=== PATIENT | male | born 1960 | race Caucasian/White ===

== ENCOUNTER → 2019-04-23 12:41 | Outpatient (CLI) | payer OTHER, SELFPAY ==
--- NOTE | ~2019-04-23 | US_ITS ---
EXAMINATION: US carotid duplex BI DATE: 04/23/2019 13:00 INDICATION: Left visual disturbance TECHNIQUE: Grayscale, color Doppler, and pulsed Doppler images of the cervical carotid arteries were obtained. The degree of vessel stenosis is placed in one of the following categories: normal, <50%, 5 0-69%, >=70% but less than near-occlusion, near-occlusion, or total occlusion. Note that percent sten osis relative to normal distal artery lumen diameter is indirectly measured from velocity measurement s as described by Barrington, et al. Radiology 2003; 229:[id number]. Notes: Normal: Peak systolic velocity <125 centimeters/sec and no plaque <50%. Peak systolic velocity <125 ( EDV <40; ICA/CCA PSV ratio <2.0; used these factors only a tandem lesions or low cardiac output or co ntralateral disease) 50-69 %: PSV 125-230 (EDV 40-100; ratio 2-4) >= 70% but less than near occlusion: PSV greater than 230 (EDV > 100; ratio> 4.0) Near Occlusion: PSV that is variable; markedly narrowed lumen Occlusion: Absent flow on color/spectral Doppler and no lumen on barakat scale. COMPARISON: None. FINDINGS: RIGHT: The right common carotid artery (CCA) peak systolic velocity (PSV) is 102 cm/s. The right internal ca rotid artery (ICA) PSV is 90 cm/s. The right ICA end-diastolic velocity (EDV) is 28 cm/s. The right I CA/CCA PSV ratio is 1.3. The external carotid artery (ECA) PSV is 99 cm/s. There is antegrade flow in the right vertebral artery. LEFT: The left CCA PSV is 109 cm/s. The left ICA PSV is 74 cm/s. The left ICA EDV is 28 cm/s. The left ICA/ CCA PSV ratio is 1.3. The ECA PSV is 87 cm/s. There is antegrade flow in the left vertebral artery. IMPRESSION: 1. Less than 50% stenosis in the right internal carotid artery by sonographic criteria. 2. Less than 50% stenosis in the left internal carotid artery by sonographic criteria. Reviewed, dictated and finalized at location A. N MARKETING ANALYST IMPRESSION: 1. Less than 50% stenosis in the right internal carotid artery by sonographic deepa porras. 2. Less than 50% stenosis in the left internal carotid artery by sonographic surinder albright.
== END ==
PROVIDERS: PCP Emergency Medicine; Visit Provider Emergency Medicine
DX: I65.23 Occlusion and stenosis of bilateral carotid arteries (principal)
CPT/HCPCS: 93880

== ENCOUNTER → 2019-10-12 12:22 | Outpatient (CLI) | payer OTHER, SELFPAY ==
--- NOTE | ~2019-10-12 | US_ITS ---
EXAMINATION: US carotid duplex BI DATE: 10/12/2019 12:46 INDICATION: Vertigo. TECHNIQUE: Grayscale, color Doppler, and pulsed Doppler images of the cervical carotid arteries were obtained. The degree of vessel stenosis is placed in one of the following categories: normal, <50%, 5 0-69%, >=70% but less than near-occlusion, near-occlusion, or total occlusion. Note that percent sten osis relative to normal distal artery lumen diameter is indirectly measured from velocity measurement s as described by Barrington, et al. Radiology 2003; [id number]:[id number]. COMPARISON: Ultrasound 04/23/2019 FINDINGS: RIGHT: The right common carotid artery (CCA) peak systolic velocity (PSV) is 105 cm/s. The right internal ca rotid artery (ICA) PSV is 93 cm/s. The right ICA end-diastolic velocity (EDV) is 25 cm/s. The right I CA/CCA PSV ratio is 1.1. Grayscale and color Doppler images yield an estimate of 0% diameter reductio n from plaque in the ICA. There is antegrade flow in the right vertebral artery. LEFT: The left CCA PSV is 119 cm/s. The left ICA PSV is 93 cm/s. The left ICA EDV is 28 cm/s. The left ICA/ CCA PSV ratio is 1.3. Grayscale and color Doppler images yield an estimate of 0% diameter reduction f rom plaque in the ICA. There is antegrade flow in the left vertebral artery. IMPRESSION: 1. Normal internal carotid arteries. Reviewed, dictated and finalized at location B.
== END ==
PROVIDERS: PCP Emergency Medicine; Visit Provider Emergency Medicine
DX: R09.89 Other specified symptoms and signs involving the circulatory and respiratory systems (principal)
CPT/HCPCS: 93880

== ENCOUNTER 2021-12-25 01:38 | Day surgery (SDC) | payer OTHER, SELFPAY ==
[2021-12-08 15:09] VITALS: BMI 23.6
--- NOTE | 2021-12-25 06:38 | PM.HPGS ---
History of Present Illness History of Present Illness Consent: Risks, benefits, and alternatives have been discussed and questions answered. Patient agrees to proceed with procedure. Chief complaint: family hx of colon polyps Narrative: Luis Garcia is a 61 year old male Referred for colon cancer screening. There is a family history of polyps in his brother. Review of Systems Review of Systems: All systems reviewed & are unremarkable except as noted in HPI and below PMFSH Past Medical History Medical History Iron deficiency anemia Screening PSA (prostate specific antigen) Family History Family History Sibling Colon polyp Mother Family history of malignant melanoma, Onset Age: 76 Father Family history of lung cancer, Onset Age: 79 Social History Social History Smoking status: Never smoker Alcohol intake: current Alcohol use details: once a day Substance use: never Substance use type: does not use Living arrangements: with family Spiritual care concerns: No Meds Home Medications and Allergies Home Medications Medication Instructions Recorded Confirmed Type cholecalciferol (vitamin D3) 25 25 mcg PO DAILY 05/07/20 12/25/21 History mcg (1,000 unit) tablet iron 18 mg tablet 18 mg PO DAILY 05/07/20 12/25/21 History tamsulosin 0.4 mg capsule See Rx Instructions .Route 07/13/21 12/25/21 Rx .COMPLEX #90 caps Allergies Allergy/AdvReac Type Severity Reaction Status Date / Time latex Allergy Unknown unknown Verified 12/25/21 10:29 Exam Const: General: alert Orientation/consciousness: patient oriented x3 Resp: Auscultation: clear to auscultation bilaterally Cardio: Rhythm: regular rhythm GI: GI Palp: Yes Soft to palpation and No Tenderness to palpation present (GI) Neuro: General: patient oriented x3 Assessment and Plan Assessment and plan (1) Colon cancer screening: Code(s): Z12.11 - Encounter for screening for malignant neoplasm of colon Status: Acute Assessment and Plan: Colonoscopy with possible biopsy or polypectomy or cautery or injection of substances.
[2021-12-25 10:33] VITALS: BP 133/76; PULSE 56; RESP 18; TEMP 36.6; O2SAT 100
[2021-12-25] MEDS: LACTATED RINGERS 1,000 ML 150 ML IV CONT (10:42)
[2021-12-25] MEDS: SIMETHICONE ORAL SUSPENSION 20 MG/0.3 ML 30 ML BOTTLE 0.6 ML IRRIGATION (11:20)
--- NOTE | 2021-12-25 11:21 | P.PNAN_ITS ---
Anes - Initial Pre Proc Eval Procedure: Operation Date: 12/25/21 11:30 Proposed Procedures p Screening Colonoscopy - William Ramirez MD Date/Time: 12/25/21 11:21 Surgeon: William Ramirez MD Pre Op Diagnosis: family hx of colon polyps Patient Data Age: 61 Gender: M Height: 1.8 m Weight: 74.5 kg Last Vital Signs Temp 97.8 F 12/25/21 10:33 Pulse 56 L 12/25/21 10:33 Resp 18 12/25/21 10:33 BP 133/76 12/25/21 10:33 Pulse Ox 100 12/25/21 10:33 O2 Del Method Room Air 12/25/21 10:33 Allergies Allergy/AdvReac Type Severity Reaction Status Date / Time latex Allergy Unknown unknown Verified 12/25/21 10:29 Home Medications Medication Instructions Recorded Confirmed Type cholecalciferol (vitamin D3) 25 25 mcg PO DAILY 05/07/20 12/25/21 History mcg (1,000 unit) tablet iron 18 mg tablet 18 mg PO DAILY 05/07/20 12/25/21 History tamsulosin 0.4 mg capsule See Rx Instructions .Route 07/13/21 12/25/21 Rx .COMPLEX #90 caps Patient hx anesthesia problems: none Family hx anesthesia problems: none Results Review: All pre-operative results and documents have been reviewed as part of the pre-operative evaluation. [facility] Past Medical History Medical History Iron deficiency anemia Screening PSA (prostate specific antigen) Family History Family History Sibling Colon polyp Mother Family history of malignant melanoma, Onset Age: 76 Father Family history of lung cancer, Onset Age: 79 Social History Social History Smoking status: Never smoker Alcohol intake: current Alcohol use details: once a day Substance use: never Substance use type: does not use Living arrangements: with family Spiritual care concerns: No Anes - Eval Final PreProcedure Day of Procedure 12/25/21 11:21 Patient weight: normal Heart: regular rate and rhythm Lungs: clear to auscultation Airway: Mallampati scale class II Neurological: alert and oriented Last oral intake: >/= 8 hours ASA classification: II Emergent: no Anesthetic plan: proceed Anesthesia type and monitoring: general GIVS and standard monitoring Results Review: All pre-operative results and documents have been reviewed as part of the pre- operative evaluation. Informed Consent: The patient's anesthetic plan and its attendant risks and benefits were discussed with the patient/family/POA. Questions were solicited and answers provided to the satisfaction of the patient/family/POA.
[2021-12-25 11:30] VITALS: BP 91/58; PULSE 54; RESP 18; O2SAT 100
[2021-12-25 11:40] VITALS: BP 95/60; PULSE 48; RESP 18; O2SAT 100
[2021-12-25 11:48] VITALS: BP 106/64; PULSE 52; RESP 18; O2SAT 100
== END 2021-12-25 12:00 | disposition home or self-care (01) ==
PROVIDERS: PCP Emergency Medicine; Visit Provider Internal Medicine Gastroenterology
PROC: 0DJD8ZZ Inspection of Lower Intestinal Tract, Via Natural or Artificial Opening Endoscopic (ICD-10-PCS; CPT 45378; principal; 2021-12-25 11:30)
DX: Z12.11 Encounter for screening for malignant neoplasm of colon (principal); Z83.71 Family history of colonic polyps; D50.9 Iron deficiency anemia, unspecified
CPT/HCPCS: 45378; J2704; J7120

== ENCOUNTER 2022-01-18 12:53 | Emergency (ER) | payer OTHER, SELFPAY ==
[2022-01-18 13:52] VITALS: BP 108/70; PULSE 60; RESP 18; TEMP 36.3; O2SAT 99
--- NOTE | 2022-01-18 14:44 | ED.SKABFB ---
HPI - Skin/Abscess/Foreign Bdy General Chief complaint: Skin/Abscess/Foreign Body Stated complaint: laceration Time Seen by Provider: 01/18/22 14:45 Source: patient Mode of arrival: ambulatory Limitations: no limitations History of Present Illness HPI narrative: 61-year-old male presenting for complaint of laceration to the left hand, after injury today. He states he cut his hand on the end of a packing tape dispenser around 1300. he covered the site with a Band-Aid. Bleeding is controlled. He is not sure when his last tetanus vaccination was. Laceration over the base of the thumb, endorses full range of motion to the thumb. CMS intact. Related Data Home Medications Medication Instructions Recorded Confirmed cholecalciferol (vitamin D3) 25 25 mcg PO DAILY 05/07/20 01/18/22 mcg (1,000 unit) tablet iron 18 mg tablet 18 mg PO DAILY 05/07/20 01/18/22 Allergies Allergy/AdvReac Type Severity Reaction Status Date / Time latex Allergy Unknown unknown Verified 01/18/22 14:12 Review of Systems Review of Systems: CONSTITUTIONAL: Denies body aches, fever, chills, or sweats. EYES: Denies visual changes, redness, or discharge. ENT: Denies rhinorrhea, congestion CARDIOVASCULAR: Denies chest pain, palpitations, or edema. RESPIRATORY: Denies cough or dyspnea. GASTROINTESTINAL: Denies abdominal pain, nausea, vomiting, or diarrhea. SKIN: Reports laceration to left hand MUSCULOSKELETAL: Denies back pain, joint pain, or myalgia. NEUROLOGIC: Denies headache, numbness, tingling, or weakness. [facility] Past Medical History Medical History Iron deficiency anemia Screening PSA (prostate specific antigen) Family History Family History Sibling Colon polyp Mother Family history of malignant melanoma, Onset Age: 76 Father Family history of lung cancer, Onset Age: 79 Social History Social History Smoking status: Never smoker Alcohol intake: current Alcohol use details: once a day Substance use: never Substance use type: does not use Spiritual care concerns: No Comments At time of signature, I have reviewed and agree with nursing past medical, surgical, social and family history unless otherwise noted. Please see nursing chart for further information. There is no relevant family history pertinent to the presenting complaint Exam Narrative: GENERAL: Well-appearing EYES: conjunctivae clear, and EOMI. ENT: Mucous membranes moist. Oropharynx without edema, erythema or lesions. NECK: Supple. No lymphadenopathy CHEST: Clear to auscultation. HEART: Regular rate and rhythm. SKIN: Warm, dry. Right hand 3cm linear laceration to 1st metacarpal, bleeding controlled. Full ROM to 1st digit. CMS intact. Cap refill <3seconds. NEURO: Alert and oriented x3. Course Course Emergency Course: Patient is aware of diagnosis, understands and agrees to treatment plan. Anticipatory guidance given. Patient agrees to follow-up as directed and is aware of reasons to seek care at the emergency department. Portions of this record may have been created with voice recognition software Level of Care: Express Care Visit Vital Signs Vital signs: Vital Signs Temperature 97.4 F L 01/18/22 13:52 Pulse Rate 60 01/18/22 13:52 Respiratory Rate 18 01/18/22 13:52 Blood Pressure 108/70 01/18/22 13:52 Pulse Oximetry 99 01/18/22 13:52 Oxygen Delivery Room Air 01/18/22 13:52 Temperature 97.4 F L 01/18/22 13:52 Pulse Rate 60 01/18/22 13:52 Respiratory Rate 18 01/18/22 13:52 Blood Pressure 108/70 01/18/22 13:52 Pulse Oximetry 99 01/18/22 13:52 Oxygen Delivery Room Air 01/18/22 13:52 Reviewed Procedures Laceration Left hand: Date: 01/18/22 Size (cm): 3 Description: linear and
[2022-01-18] MEDS: TETANUS,DIPHTHERIA,AC PERTUSSIS ADULT (0.5 ML) BOOSTRIX IM (14:57)
== END 2022-01-18 15:39 | disposition home or self-care (01) ==
PROVIDERS: Emergency Provider Nurse Practitioner Family; PCP Emergency Medicine
DX: S61.412A Laceration without foreign body of left hand, initial encounter (principal); W26.8XXA Contact with other sharp object(s), not elsewhere classified, initial encounter; Z23 Encounter for immunization; D50.9 Iron deficiency anemia, unspecified
CPT/HCPCS: 12002; 90471; 90715; 99212; G0463

== ENCOUNTER 2023-08-23 08:50 | Outpatient (CLI) | payer OTHER, SELFPAY | END 2023-08-23 08:51 | disposition home or self-care (01) | LOC: ANHAUDIO 08:51 | PROVIDERS: PCP Emergency Medicine; Visit Provider Emergency Medicine | DX: H93.13 Tinnitus, bilateral (principal); H61.23 Impacted cerumen, bilateral | CPT/HCPCS: 92557; 92567 ==

== ENCOUNTER 2024-04-04 08:56 | Outpatient (CLI) | payer OTHER, SELFPAY ==
--- NOTE | 2024-04-16 15:01 | P.SLEEP_ITS ---
Sleep Study - Home Unattended Date of Study: 04/04/24 Ordering Provider: Matheus Acevedo APRN Interpreting Provider: Lory Ly DO Home Sleep Study Type: Watch PAT Height: 1.8 m Weight: 77.111 kg Body Mass Index: 23.7 Neck Circumference (inches): 16 Elton: 5 Reason for Sleep Study snoring, difficulty staying asleep Sleep History The patient is a 63-year-old male that had a sleep study ordered for evaluation of sleep apnea. The patient admits to snoring loudly and difficulty staying asleep. He denies interruptions in breathing asleep. He denies choking or gasping at night. He does have difficulty breathing on his back. He denies morning headaches. He does have a dry or sore mouth / throat in the morning. He denies nocturnal heartburn. He urinates twice throughout the night. He denies having difficulty falling asleep. He does have difficulty returning to sleep if he wakes up throughout the night. He does use hypnotics or sedatives. He denies feeling anxious about sleep. He does feel tired or sleepy during the day. He does not feel tired in the morning. He denies having the urge to fall asleep during the day. He denies feeling drowsy while driving. He denies sleep paralysis, cataplexy and hypnagogic/ hypnopompic hallucinations. Denies clenching or grinding his teeth. He denies kicking or jerking his legs excessively. He denies having a restless feeling in his legs. He goes to bed at 10:00 p.m. number night. It takes him 15 minutes to fall asleep. He gets 6-1/2 hours of sleep on work days and 7 hours on his days. His sleep is a little more restorative on his days. He does take a nap in the afternoon that is less than 1 hour. He denies dream enactment behavior. He denies sleep walking. He consumes 3-4 cups of caffeinated beverage per day. He consumes 1 alcoholic beverage 1-2 nights per week. He denies tobacco use. He does exercise 5-7 nights per week. [facility] Past Medical History Medical History Syncope Lumbar strain Sprain of left hand Fatigue Screening PSA (prostate specific antigen) Iron deficiency Vitamin D deficiency Orthostatic hypotension Nocturia Dizziness Bradycardia BPH associated with nocturia Screening PSA (prostate specific antigen) Iron deficiency anemia Family History Family History Sibling Colon polyp Mother Family history of malignant melanoma, Onset Age: 76 Father Family history of lung cancer, Onset Age: 79 Social History Social History Smoking status: Never smoker Alcohol intake: current Alcohol use details: once a day Substance use: never Substance use type: does not use Do You Feel Safe in your Home?: Yes Lack of Transportation: No Lack of Food: Never True Current Housing: I Have Housing Concerned About Future Housing: No Difficulty Paying Gas/Electric Bills: No Difficulty Paying for Meds: No Currently Unemployed: No Education: Bachelor's Degree Difficulty w/ Childcare or Family Care: No Living arrangements: with family Spiritual care concerns: No Medications Home Medications ?Medication ?Instructions ?Recorded ?Confirmed ?Type cholecalciferol (vitamin D3) 25 25 mcg PO DAILY 05/07/20 01/24/24 History mcg (1,000 unit) tablet iron 18 mg tablet 18 mg PO DAILY 05/07/20 01/24/24 History loratadine 10 mg tablet (Claritin) 10 mg PO DAILY 06/06/23 01/24/24 History finasteride 5 mg tablet See Rx Instructions .Route 12/05/23 01/24/24 Rx .COMPLEX #90 tabs tamsulosin 0.4 mg capsule See Rx Instructions .Route 12/05/23 01/24/24 Rx .COMPLEX #90 caps fluticasone propionate 50 1 spray intranasal BID 01/24/24 01/24/24 History mcg/actuation nasal spray,suspension (Flonase Allergy Relief) Sleep Procedure The sleep study was completed using LiiiikeT a technically adequate device with seven channels: peripheral arterial tone, actigraphy, body position, snore, respiratory movement, pulse oximetry, sleep staging, and heart rate. Prior to using the device, the patient received verbal and written instructions for its application and was provided with the [employer] phone number for additional telephonic instruction with 24-hour availability of qualified personnel to answer questions. The study was scored using AASM guidelines. Sleep Architecture The total recording time is 8 hrs, 19 min. The total sleep time is 7 hrs, 19 min. Sleep latency is 6 minutes. REM latency is 50 minutes. The patient had 10 episodes of waking. Sleep architecture shows 20.8% deep sleep, 56.5% light sleep, and (as % Total Sleep Time) showed NREM (Light 56.5%; Deep 20.8%), and a 22.7% stage REM. The patient spent 19.8% of total sleep time in the supine position. Sleep efficiency was 87.98. Respiratory Analysis The overall AHI (pAHI 3%:) is 3.0. The central AHI is 0.6. The AHI was 2.2 in NREM and 5.5 in REM sleep. The AHI was 4.9 in Supine and 2.5 in Non-supine sleep. Percent of Minesh Santos respirations is 0.0. Oximetry Data The oxygen desaturation index (DUTCH 4%:) is 0.3. The mean saturation is 95%, and the lowest saturation is 91%. Time spent with saturation < 88% is 0.0 minutes. Snoring Profile Snoring average intensity is 41 dB. The patient snored above 45 decibels for 33.4 minutes, 7.6% of sleep time. Cardiac Profile The average pulse rate is 55 beats per minutes. The lowest pulse rate is 44 bpm. The highest pulse rate reported is 92 bpm. Atrial fibrillation was not detected. Premature beats occur <0.1 per minute. Assessment and Plan Assessment and Plan (1) Snoring: Code(s): R06.83 - Snoring Status: Acute Assessment and Plan: The patient had an overall AHI of 3.0 with desaturation down to 91%. This is not consistent with sleep disordered breathing. If there is still a concern for a sleep disorder, I recommend the patient have a split study with the use of a hypnotic to ensure we obtain enough sleep data. Data The data obtained during this sleep study is adequate for interpretation. Certification This sleep study has been reviewed by a board certified sleep medicine physician.
[2024-04-16 15:10] VITALS: BMI 23.7
== END 2024-04-05 11:28 | disposition home or self-care (01) ==
LOC: ANHCSM 08:57
PROVIDERS: PCP Emergency Medicine; Visit Provider Nurse Practitioner Family
DX: R06.81 Apnea, not elsewhere classified (principal); R06.83 Snoring; R40.0 Somnolence
CPT/HCPCS: 95800

== ENCOUNTER 2024-05-04 11:47 | Outpatient (CLI) | payer OTHER, SELFPAY ==
--- NOTE | 2024-05-04 12:47 | ECG_ITS ---
Test Date: 2024-05-04 12:58:58 Measurements Intervals [place] Rate: 54 P: 80 VT: 158 QRS: 53 QRSD: 90 T: 42 QT: 399 QTc: 379 Interpretive Statements SINUS BRADYCARDIA OTHERWISE NORMAL ECG No previous ECG available for comparison Electronically Signed On 05-05-2024 15:23:39 HIGHER EDUCATION ADMINISTRATOR by Austin Gutierrez M.D.
[2024-05-04 13:33] LABS: Basophils Absolute Auto 0.1 K/mm3 (0.0-0.1); Eosinophils Absolute Auto 0.1 K/mm3 (0-0.3); Eosinophils Percent Auto 1.7 % (0-4.4); Hematocrit 43.8 % (42.0-52.0); Hemoglobin 14.1 g/dL (14.0-18.0); Immature Granulocyte Absolute 0.02 K/mm3 (0.00-0.031); Immature Granulocyte Percent A 0.3 % (0-0.5); Lymphocytes Absolute Auto 1.81 K/mm3 (0.9-3.2); Lymphocytes Percent Auto 30.2 % (18.3-44.2); Mean Corpuscular HGB Conc 32.2 g/dl (32-36); Mean Corpuscular Hemoglobin 29.2 pg (26-34); Mean Corpuscular Volume 90.7 fl (80-100); Monocytes Absolute Auto 0.4 K/mm3 (0.1-0.6); Monocytes Percent Auto 6.7 % (2.6-8.5); Neutrophils Absolute Auto 3.6 K/mm3 (1.3-6.7); Neutrophils Percent Auto 60.1 % (45.5-73.1); Platelet Count Result 239 k/mm3 (150-375); Red Blood Count 4.83 M/mm3 (4.6-6.20); Red Cell Distribution Width 13.2 % (11.5-14.5)
[2024-05-04 13:55] LABS: Alanine Aminotransferase 23 U/L (6-50); Albumin Level 4.2 g/dL (3.5-5.1); Alkaline Phosphatase 76 U/L (38-126); Anion Gap 7 mmol/L (4-12); Aspartate Amino Transferase 29 U/L (17-59); Bilirubin,Total 0.6 mg/dL (0.2-1.3); Blood Urea Nitrogen 17 mg/dL (9-20); Calcium 8.9 mg/dL (8.4-10.2); Carbon Dioxide 31 mmol/L (22-30); Chloride 101 mmol/L (98-107); Estimated Glomerular Filt Rate > 60; Glucose 81 mg/dL (65-110); Potassium 3.8 mmol/L (3.4-5.0); Sodium 139 mmol/L (137-145)
[2024-05-04 14:02] LABS: Prothrombin Time 13.8 Seconds (11.1-14.7)
[2024-05-04 14:03] LABS: Partial Thromboplastin Time 27.1 Seconds (22.3-36.8)
== END 2024-05-04 11:48 | disposition home or self-care (01) ==
LOC: ANHSURGERY 11:53
PROVIDERS: PCP Emergency Medicine; Visit Provider Urology
DX: Z01.818 Encounter for other preprocedural examination (principal); C61 Malignant neoplasm of prostate
CPT/HCPCS: 36415; 80053; 85025; 85610; 85730; 86850; 86900; 86901; 87086; 93005

== ENCOUNTER 2024-05-15 00:40 | Day surgery (SDC) | payer OTHER, SELFPAY ==
[2024-05-04 11:56] VITALS: BMI 24.9
--- NOTE | 2024-05-04 11:59 | PC.NURSE ---
Report to the Outpatient Waiting Room, entrance under the green pavilion located off [facility], at time _6 am on date _05/15/24 . Planned Procedure Time: ___7:30 am .? Time changes happen often and if your time is changed the preop area will call you the afternoon before. - You and your visitor will be asked to self-screen and do not enter if you have any COVID symptoms. Please call surgeon if you need to reschedule. - A mask is optional within the hospital at this time. Patients may have clear liquids (water, carbonated beverages, clear teas, apple juice) until 3 hours prior to surgery ( 4:30 am)with a maximum of 20 ounces. - No food from midnight until time of surgery and no smoking, or chewing tobacco (or any form of nicotine). No chewing gum, candy or mints. Take only the following medications with a SIP of water on the morning of surgery: ____NONE DO NOT STOP ANY OF YOUR OTHER PRESCRIPTION MEDICATIONS PRIOR TO SURGERY EXCEPT THE FOLLOWING Hold all vitamins and supplements for 3 days per anesthesiologist.LAST DOSE 05/11/24 Medications to discontinue per physician NONE Please no make-up, nail faroese, hairspray, perfume, deodorant, or body powder the day of surgery.? No jewelry (including any body piercings) or valuables the day of surgery, leave them at home.? Please take a shower or bath the night before, or the morning of, surgery with an antibacterial soap.? Wear comfortable, loose fitting clothing.? Children are encouraged to wear pajamas. - Jewelry must be removed prior to entering the operating room.? Rings and piercings that are not removed may be cut off. - The hospital will not accept responsibility for valuables.? - Please leave all valuables, including medications, at home the day of surgery. If you are going home after surgery, a licensed services delivery driver must drive you home.? - NO public transportation without another adult if you receive anesthesia. - We recommend that an adult stay with you for 24 hours following discharge. - We also recommend that you do not drive, make important decision, drink alcoholic beverages, or take any drugs that were not prescribed by your health care provider for at least 24 hours after your discharge time. Follow any additional instructions given to you from your surgeon. VERBAL AND WRITTEN instructions given to _PATIENT and asked if any additional questions and then verbalized understanding. Patient advised to call surgeon office or pre surgery nurse liaison [phone] if any additional questions.
[2024-05-04 12:38] VITALS: BP 118/66; PULSE 62; RESP 18; TEMP 36.9; O2SAT 100
[2024-05-15] VITALS (17 sets, daily range): BP systolic 102–134; BP diastolic 44–87; PULSE 54–97; RESP 10–20; TEMP 35.9–36.6; O2SAT 98–100; BMI 24.0
[2024-05-15] MEDS: LACTATED RINGERS 1,000 ML 30 ML IV CONT ×3 (06:30→13:02)
[2024-05-15] MEDS: ONDANSETRON INJ 4 MG/2 ML VIAL IV PUSH ×2 (06:55→16:28)
[2024-05-15] MEDS: FAMOTIDINE 20 MG/2 ML VIAL IV PUSH (06:55)
--- NOTE | 2024-05-15 07:01 | WPDANESEPPF ---
Anes - Initial Pre Proc Eval Procedure: Operation Date: 05/15/24 07:30 Proposed Procedures p Robotic Nerve Sparing Prostatectomy, Possible Pelvic Lymph Node Dissection - Fantasma Dee MD Date/Time: 05/15/24 07:01 Surgeon: Fantasma Dee MD Pre Op Diagnosis: prostate CA Patient Data Age: 63 Gender: M Height: 1.8 m Weight: 81 kg Last Vital Signs Temp 36.9 C 05/04/24 12:38 Pulse 62 05/04/24 12:38 Resp 18 05/04/24 12:38 BP 118/66 05/04/24 12:38 Pulse Ox 100 05/04/24 12:38 O2 Del Method Room Air 05/04/24 12:38 Allergies Allergy/AdvReac Type Severity Reaction Status Date / Time latex Allergy Unknown Rash Verified 05/04/24 11:57 Home Medications ?Medication ?Instructions ?Recorded ?Confirmed ?Type cholecalciferol (vitamin D3) 25 25 mcg PO DAILY 05/07/20 05/04/24 History mcg (1,000 unit) tablet iron 18 mg tablet 18 mg PO DAILY 05/07/20 05/04/24 History finasteride 5 mg tablet See Rx Instructions .Route 12/05/23 05/04/24 Rx .COMPLEX #90 tabs tamsulosin 0.4 mg capsule See Rx Instructions .Route 12/05/23 05/04/24 Rx .COMPLEX #90 caps fluticasone propionate 50 1 spray intranasal BID 01/24/24 05/04/24 History mcg/actuation nasal spray,suspension (Flonase Allergy Relief) eszopiclone 3 mg tablet 3 mg PO ONCE #1 tablet 04/18/24 05/04/24 Rx Patient hx anesthesia problems: none Family hx anesthesia problems: none Results Review: All pre-operative results and documents have been reviewed as part of the pre-operative evaluation. [facility] Past Medical History Medical History Syncope Lumbar strain Sprain of left hand Fatigue Screening PSA (prostate specific antigen) Iron deficiency Vitamin D deficiency Orthostatic hypotension Nocturia Dizziness Bradycardia BPH associated with nocturia Screening PSA (prostate specific antigen) Iron deficiency anemia Family History Family History Sibling Colon polyp Mother Family history of malignant melanoma, Onset Age: 76 Father Family history of lung cancer, Onset Age: 79 Social History Social History Smoking status: Never smoker Alcohol intake: current Alcohol use details: once a day Substance use: never Substance use type: does not use Do You Feel Safe in your Home?: Yes Lack of Transportation: No Lack of Food: Never True Current Housing: I Have Housing Concerned About Future Housing: No Difficulty Paying Gas/Electric Bills: No Difficulty Paying for Meds: No Currently Unemployed: No Education: Bachelor's Degree Difficulty w/ Childcare or Family Care: No Living arrangements: with family Spiritual care concerns: No Anes - Eval Final PreProcedure Day of Procedure 05/15/24 07:01 Patient weight: normal Heart: bradycardia Lungs: clear to auscultation Airway: Mallampati scale class II Neurological: alert and oriented Last oral intake: >/= 8 hours ASA classification: III Emergent: no Anesthetic plan: proceed Anesthesia type and monitoring: general ETT and standard monitoring Results Review: All pre-operative results and documents have been reviewed as part of the pre-operative evaluation. Informed Consent: The patient's anesthetic plan and its attendant risks and benefits were discussed with the patient/family/POA. Questions were solicited and answers provided to the satisfaction of the patient/family/POA.
--- NOTE | 2024-05-15 07:03 | PM.IMHP ---
H&P: HPI History of Present Illness Date/Time: 05/15/24 07:03 Chief Complaint: adenocarcinoma of prostate Narrative: 63 yr old male with adenocarcnoma of prostate presents for robotic prostatectomy Review of Systems Review of Systems: All systems reviewed & are unremarkable except as noted in HPI and below PMFSH Past Medical History Medical History Syncope Lumbar strain Sprain of left hand Fatigue Screening PSA (prostate specific antigen) Iron deficiency Vitamin D deficiency Orthostatic hypotension Nocturia Dizziness Bradycardia BPH associated with nocturia Screening PSA (prostate specific antigen) Iron deficiency anemia Family History Family History Sibling Colon polyp Mother Family history of malignant melanoma, Onset Age: 76 Father Family history of lung cancer, Onset Age: 79 Social History Social History Smoking status: Never smoker Alcohol intake: current Alcohol use details: once a day Substance use: never Substance use type: does not use Do You Feel Safe in your Home?: Yes Lack of Transportation: No Lack of Food: Never True Current Housing: I Have Housing Concerned About Future Housing: No Difficulty Paying Gas/Electric Bills: No Difficulty Paying for Meds: No Currently Unemployed: No Education: Bachelor's Degree Difficulty w/ Childcare or Family Care: No Living arrangements: with family Spiritual care concerns: No Meds Home Medications and Allergies Home Medications ?Medication ?Instructions ?Recorded ?Confirmed ?Type cholecalciferol (vitamin D3) 25 25 mcg PO DAILY 05/07/20 05/04/24 History mcg (1,000 unit) tablet iron 18 mg tablet 18 mg PO DAILY 05/07/20 05/04/24 History finasteride 5 mg tablet See Rx Instructions .Route 12/05/23 05/04/24 Rx .COMPLEX #90 tabs tamsulosin 0.4 mg capsule See Rx Instructions .Route 12/05/23 05/04/24 Rx .COMPLEX #90 caps fluticasone propionate 50 1 spray intranasal BID 01/24/24 05/04/24 History mcg/actuation nasal spray,suspension (Flonase Allergy Relief) eszopiclone 3 mg tablet 3 mg PO ONCE #1 tablet 04/18/24 05/04/24 Rx Allergies Allergy/AdvReac Type Severity Reaction Status Date / Time latex Allergy Unknown Rash Verified 05/04/24 11:57 Exam Const: General: cooperative, comfortable and no acute distress Resp: Effort & Inspection: normal respiratory effort Cardio: Rate: regular rate Rhythm: regular rhythm GI: Inspection: normal to inspection Assessment and Plan Assessment and plan (1) Adenocarcinoma of prostate: Code(s): C61 - Malignant neoplasm of prostate Status: Acute Assessment and Plan: Proceed with robotic assist nerve sparing prostatectomy with possible plnd
--- NOTE | 2024-05-15 07:06 | WPDHPUPDATE1 ---
History and Physical Update Update Date/Time: 05/15/24 07:06 History and Physical has been reviewed, including an updated exam of the patient. There are NO changes in the patient's condition. Risks, benefits, and alternatives have been discussed and questions answered. Patient agrees to proceed with procedure.
[2024-05-15] MEDS: ceFAZolin 2 GM/D5W 50 ML 2 GM/50 ML BAG IVPB (08:25)
[2024-05-15] MEDS: BUPivacaine HCL 0.5% PF 30 ML VIAL INFILTRATE (08:41)
[2024-05-15] MEDS: ceFAZolin SODIUM 1 GM VIAL IV PUSH (11:29)
--- NOTE | 2024-05-15 12:45 | W.PM.PROC2 ---
Procedure Note - Detailed Date of Procedure 05/15/24 Pre-op Diagnosis prostate CA Post-op Diagnosis Same Procedure Performed Robotic assisted nerve-sparing prostatectomy with right pelvic lymph node dissection Surgeon Fantasma Dee MD Anesthesia General Description of Procedure Patient was taken the operative suite and correctly identified. Once anesthesia was obtained was placed in dorsal lithotomy position and prepped draped usual sterile fashion. Eighteen [place] Self was placed with 15 cc in the balloon. Supraumbilical incision was made carried down to the rectus fascia. Veress needle was inserted in the abdomen insufflated 12 mmHg pressure. Camera port was then placed under direct vision. Other working ports were placed in their appropriate locations. Patient was placed in steep Trendelenburg and the robot was docked. Patient had quite a bit of adhesions of his colon both on the right and the left side. These were taken down. Posterior approach was then taken. Seminal vesicles were both dissected out. They were somewhat adhered. Stay vas is were transected. Plane between the prostate and rectum was developed. Bladder was then taken down. Space of Retzius was developed bilaterally. Pubic prosthetics were incised. Dorsal venous complex was isolated using 0 Vicryl secured pubic bone. Bladder neck was then opened. It was noted that he had a very moderate-sized median lobe. In order to remove it the bladder actually was somewhat enlarged. The posterior plane was then developed. Seminal vesicles and vas were brought out. Pedicles were clipped. Bilateral nerve-sparing was performed. He was noted on the left side that the prostate was somewhat adhered. Dorsal venous complex was transected. The urethral stump was transected. This specimen was placed in Endo-Catch bag. Right pelvic lymph node dissection was performed a standard fashion. Clips were placed proximally and distally. Borders of dissection were the external iliac vein, obturator nerve, Rodríguez's ligament, and bifurcation of the vessel. The bladder neck was reconstructed in interrupted fashion by placing some 2-0 Vicryl is a at the 3 and 6 o'clock position. A Smith stitch was placed using 0 Vicryl. The lock suture was then used to anastomose the urethral stump to the bladder neck. There was good mucosa to mucosa approximation. BARB drain was then placed with a 4th working port site. All lap count needle counts sponge counts were correct. The robot was undocked. Midline incision was closed using 0 Vicryl running fashion. Subcuticular stitches placed. Patient tolerated procedure without any complications. Incisions were anesthetized using 1% lidocaine. This completes dictation. Please send a copy of op note to office Estimated Blood Loss 200 Drains Yes Packing No Pathology Yes Complications No immediate complications Condition Stable Disposition PACU
--- NOTE | 2024-05-15 15:41 | ADMGEN ---
This patient, Luis Garcia, was admitted to Medical Room 249-01. Patient oriented to hospital policies and general routines including ID bracelet, bed and alarms, visiting hours, pain management, procedures, bathroom and other care routines, personal items, smoking policy, room service/diet, and visiting hours. Information on how to activate the Rapid Response Team has been discussed. Patient are encouraged to report perceived risks to care and to ask questions if they do not understand what they are told or what they should do.
--- NOTE | 2024-05-15 16:02 | ADMGEN ---
This patient, Luis Garcia, was admitted to Medical Room 249-01. Patient/family oriented to hospital policies and general routines including ID bracelet, bed and alarms, visiting hours, pain management, procedures, bathroom and other care routines, personal items, smoking policy, room service/diet, and visiting hours. Information on how to activate the Rapid Response Team has been discussed. Patient/Family are encouraged to report perceived risks to care and to ask questions if they do not understand what they are told or what they should do.
[2024-05-15] MEDS: LACTATED RINGERS 1,000 ML 125 ML IV CONT (16:28)
[2024-05-15] MEDS: DOCUSATE SODIUM 100 MG CAPSULE PO (17:28)
[2024-05-15] MEDS: HYDROcodone/acetaminophen (*CRX) 5-325 MG TABLET 2 TAB PO (18:52)
[2024-05-15] MEDS: diphenhydrAMINE HCl CAP 25 MG CAPSULE PO (21:34)
[2024-05-15] MEDS: KETOROLAC 30 MG/ML VIAL (*BKC) IV PUSH (23:28)
[2024-05-16] MEDS: LACTATED RINGERS 1,000 ML 125 ML IV CONT ×2 (00:12→08:15)
[2024-05-16 00:18] VITALS: BP 108/59; PULSE 64; RESP 20; TEMP 36.6; O2SAT 98
[2024-05-16 04:04] VITALS: BP 109/48; PULSE 72; RESP 20; TEMP 36.8; O2SAT 98
[2024-05-16] MEDS: HYDROcodone/acetaminophen (*CRX) 5-325 MG TABLET 1 TAB PO (04:14)
[2024-05-16 05:48] LABS: Hematocrit 36.4 % (42.0-52.0); Hemoglobin 11.7 g/dL (14.0-18.0)
[2024-05-16 05:58] LABS: Anion Gap 7 mmol/L (4-12); Blood Urea Nitrogen 15 mg/dL (9-20); Calcium 8.2 mg/dL (8.4-10.2); Carbon Dioxide 26 mmol/L (22-30); Chloride 100 mmol/L (98-107); Estimated CRCL calculation 73 ml/min; Estimated Glomerular Filt Rate > 60; Glucose 122 mg/dL (65-110); Potassium 4.1 mmol/L (3.4-5.0); Sodium 133 mmol/L (137-145)
[2024-05-16] MEDS: KETOROLAC 30 MG/ML VIAL (*BKC) IV PUSH ×2 (06:04→12:01)
--- NOTE | 2024-05-16 07:52 | WPDUROPN2 ---
Progress Note: A&P Assessment and Plan (1) Adenocarcinoma of prostate: Code(s): C61 - Malignant neoplasm of prostate Status: Acute Assessment and Plan: Doing well at this time. Will increase ambulation. Re-evaluate little later today. Possibly remove BARB later today and discharged home. Subjective Subjective Date/Time Seen: 05/16/24 07:52 Interval history: Doing well at this time. No major complaints Review of Systems Review of Systems: All systems reviewed & are unremarkable except as noted in HPI and below Exam Const: General: cooperative and comfortable Resp: Effort & Inspection: normal respiratory effort Cardio: Rate: regular rate Rhythm: regular rhythm Objective Data Vital Signs Vital Signs: Vital Signs - 24 hr 05/15/24 13:02 05/15/24 13:15 05/15/24 13:30 Temperature 36.4 C Pulse Rate 97 84 81 Respiratory Rate 10 L 16 16 Blood Pressure 130/73 120/69 134/75 Pulse Oximetry 100 100 100 Oxygen Delivery Simple Face Mask Simple Face Mask Simple Face Mask Oxygen Flow Rate 8 8 8 05/15/24 13:45 05/15/24 14:00 05/15/24 14:15 Temperature Pulse Rate 70 68 69 Respiratory Rate 16 20 20 Blood Pressure 128/79 132/81 133/80 Pulse Oximetry 100 100 100 Oxygen Delivery Room Air Room Air Room Air Oxygen Flow Rate 05/15/24 14:30 05/15/24 14:45 05/15/24 15:15 Temperature Pulse Rate 73 85 62 Respiratory Rate 16 20 14 Blood Pressure 131/71 129/77 134/87 Pulse Oximetry 100 100 100 Oxygen Delivery Room Air Room Air Room Air Oxygen Flow Rate 05/15/24 15:30 05/15/24 15:45 05/15/24 16:00 Temperature 36.1 C L 35.9 C L Pulse Rate 68 65 60 Respiratory Rate 20 16 16 Blood Pressure 134/87 112/49 L 126/60 Pulse Oximetry 100 100 100 Oxygen Delivery Room Air Oxygen Flow Rate 05/15/24 16:30 05/15/24 17:30 05/15/24 20:00 Temperature 36.1 C L 36.3 C L Pulse Rate 61 59 L Respiratory Rate 16 16 Blood Pressure 134/63 124/65 Pulse Oximetry 100 100 Oxygen Delivery Room Air Oxygen Flow Rate 05/15/24 20:33 05/16/24 00:18 05/16/24 04:04 Temperature 36.6 C 36.6 C 36.8 C Pulse Rate 59 L 64 72 Respiratory Rate 20 20 20 Blood Pressure 113/59 L 108/59 L 109/48 L Pulse Oximetry 98 98 98 Oxygen Delivery Oxygen Flow Rate Intake/Output Intake/Output: Intake & Output 05/13/24 05/14/24 05/15/24 05/16/24 23:59 23:59 23:59 23:59 Intake Total 1150 1256.7 Output Total 318 830 Balance 832 426.7 Meds/Results Medications: Active Medications Generic Name Dose Route Start Last Admin Trade Name Freq PRN Reason Stop Dose Admin Hydrocodone Bitart/Acetaminophen 1 tab 05/15/24 15:34 05/16/24 04:14 Hydrocodone/Acetaminophen (*Crx) 5-325 Mg Tablet PO 1 tab Q6H PRN Administration Pain Rated 1-3 Hydrocodone Bitart/Acetaminophen 2 tab 05/15/24 15:34 05/15/24 18:52 Hydrocodone/Acetaminophen (*Crx) 5-325 Mg Tablet PO 2 tab Q6H PRN Administration Pain Rated 4-6 Diphenhydramine HCl 25 mg 05/15/24 20:24 05/15/24 21:34 Diphenhydramine Hcl Cap 25 Mg Capsule PO 25 mg HS PRN Administration Insomnia Docusate Sodium 100 mg 05/15/24 17:00 05/15/24 17:28 Docusate Sodium 100 Mg Capsule PO 100 mg BID LATANYA Administration Hyoscyamine 0.125 mg 05/15/24 15:34 Hyoscyamine Sulfate 0.125 Mg Tablet SUBLINGUAL Q4H PRN Bladder Spasm Lactated Ringer's 1,000 mls @ 125 mls/hr 05/15/24 15:34 05/16/24 00:12 Lr - Lactated Ringers Iv IV CONT 125 mls/hr .Q8H LATANYA Administration Ketorolac Tromethamine 30 mg 05/15/24 15:34 05/16/24 06:04 Ketorolac 30 Mg/Ml Vial (*Bkc) IV PUSH 05/16/24 15:33 30 mg Q6H PRN Administration Pain Rated 4-6 Levofloxacin 500 mg 05/16/24 09:00 Levofloxacin 500 Mg Tablet PO DAILY LATANYA Morphine Sulfate 1 mg 05/15/24 15:34 Morphine Sulfate (*Crx) 2 Mg/Ml Inj IV PUSH Q2H PRN Pain Rated 7-10 Naloxone HCl 0.1 mg 05/15/24 15:34 Naloxone Hcl 0.4 Mg/Ml Vial IV PUSH Q2M PRN Opiate Reversal Ondansetron HCl 4 mg 05/15/24 15:34 05/15/24 16:28 Ondansetron Inj 4 Mg/2 Ml Vial IV PUSH 4 mg Q6H PRN Administration Nausea And Vomiting Labs Labs: Laboratory Results - last 24 hr 05/16/24 05:01 Hgb 11.7 L Hct 36.4 L Sodium 133 L Potassium 4.1 Chloride 100 Carbon Dioxide 26 Anion Gap 7 BUN 15 Creatinine 0.98 Estim Creat Clear Calc 73 Estimated GFR > 60 Glucose 122 H Calcium 8.2 L
[2024-05-16 08:00] VITALS: BP 111/60; PULSE 59; RESP 18; TEMP 36.3; O2SAT 100
[2024-05-16] MEDS: DOCUSATE SODIUM 100 MG CAPSULE PO (08:15)
[2024-05-16] MEDS: levoFLOXacin 500 MG TABLET PO (08:16)
--- NOTE | 2024-05-16 10:08 | WPDANESPN ---
Anes - Prog Note Post-Op Date/Time: 05/16/24 10:08 Cardiovascular status: normal Respiratory status: normal Airway patency: baseline Mental status: baseline Post-Op hydration status: normal Vital Signs: Last Vital Signs Temp 36.3 C L 05/16/24 08:00 Pulse 59 L 05/16/24 08:00 Resp 18 05/16/24 08:00 BP 111/60 05/16/24 08:00 Pulse Ox 100 05/16/24 08:00 O2 Del Method Room Air 05/15/24 20:00 O2 Flow Rate 8 05/15/24 13:30 Pain Score (VAS): 2 I/O: Intake & Output 05/15/24 05/16/24 05/16/24 23:59 07:59 15:59 Intake Total 1256.7 1670 Output Total 75 830 Balance -75 426.7 1670 Laboratory Tests 05/16/24 05:01 05/16/24 05:01 05/16/24 05:01 Hgb 11.7 L Hct 36.4 L Sodium 133 L Potassium 4.1 Chloride 100 Carbon Dioxide 26 Anion Gap 7 BUN 15 Creatinine 0.98 Estim Creat Clear Calc 73 Estimated GFR > 60 Glucose 122 H Calcium 8.2 L Post-procedural complaints: none Patient Feedback: Patient satisfied with anesthetic care.
[2024-05-16 12:00] VITALS: BP 120/62; PULSE 60; RESP 18; TEMP 36.6; O2SAT 99
--- NOTE | 2024-05-17 08:03 | PM.DS ---
DS: Admitting Diagnosis Discharge Date 05/16/24 Admitting Diagnosis Adenocarcinoma of prostate DS: Discharge Diagnosis Discharge Diagnosis (1) Adenocarcinoma of prostate: Code(s): C61 - Malignant neoplasm of prostate Status: Acute Assessment and Plan: Discharged home with Self catheter. Catheter cystogram in 1 week with follow-up DS: Summary Hospital Course Hospital Course: Patient had an uneventful robotic assisted nerve-sparing prostatectomy with right pelvic lymph node dissection. Postoperatively he has done well. He is ambulating. Pathology is pending at the time of discharge. Time Spent with Patient Time attestation: Total time spent providing and/or coordinating discharge services: DS: Data Data Completed and Pending Pending studies at discharge: Pending at discharge 05/15/24 12:29 Surgical [PTH] Routine Surgical [PTH] Routine Discharge Plan Discharge Patient Disposition: Home, Self-Care Discharge Instructions: Discharged home with Self catheter. Patient has appointment for catheter cystogram in 1 week with office visit. No heavy lifting or straining. Instruct patient on use of leg bag Patient Instructions: Self Catheter Placement and Care (DC), Urinary Leg Bag (GEN), Robot Assisted Laparoscopic Prostatectomy (DC) Patient Language: Kiswahili Follow-up/Referrals: Fantasma Dee MD [Physician] - Austin Quiles MD [Primary Care Provider] - Discharge Medications: New sulfamethoxazole-trimethoprim [Bactrim DS] 800-160 mg tablet 1 tablet PO Q12H Qty: 6 0RF tramadol 50 mg tablet 50 mg PO Q6H PRN (Reason: pain) Qty: 20 0RF oxybutynin chloride 5 mg tablet 5 mg PO BID PRN (Reason: bladder spasms) Qty: 30 0RF Rx Instructions: Take as needed for bladder spasms Continued fluticasone propionate [Flonase Allergy Relief] 50 mcg/actuation spray,suspension 1 spray intranasal BID Rx Instructions: administer into each nostril iron 18 mg tablet 18 mg PO DAILY cholecalciferol (vitamin D3) 25 mcg (1,000 unit) tablet 25 mcg PO DAILY tamsulosin 0.4 mg capsule See Rx Instructions .ROUTE .COMPLEX Qty: 90 2RF Dose Instruction: TAKE 1 CAPSULE(0.4 MG) BY MOUTH EVERY DAY 30 MINUTES AFTER THE SAME MEAL Rx Instructions: TAKE 1 CAPSULE(0.4 MG) BY MOUTH EVERY DAY 30 MINUTES AFTER THE SAME MEAL Discontinued finasteride 5 mg tablet See Rx Instructions .ROUTE .COMPLEX Qty: 90 2RF Dose Instruction: TAKE 1 TABLET BY MOUTH DAILY Rx Instructions: TAKE 1 TABLET BY MOUTH DAILY
== END 2024-05-16 17:30 | disposition home or self-care (01) ==
LOC: ANHSURGERY 05:57 → ANH2MED 15:37
PROVIDERS: PCP Emergency Medicine; Visit Provider Urology
PROC: 0VT04ZZ Resection of Prostate, Percutaneous Endoscopic Approach (ICD-10-PCS; CPT 55867; principal; 2024-05-15 07:30)
DX: C61 Malignant neoplasm of prostate (principal)
CPT/HCPCS: 55866; 38571; S2900; 36415; 80048; 85014; 85018; 88305; 88309; A9270; J0330; J0690; J1596; J1885; J2003; J2250; J2405; J2704; J3010; J7120; Q9968

== ENCOUNTER 2024-05-24 11:10 | Outpatient (CLI) | payer OTHER, SELFPAY ==
--- NOTE | ~2024-05-24 | XR_ITS ---
EXAMINATION: XR cystogram DATE: 05/24/2024 11:53 INDICATION: Prostate cancer. TECHNIQUE: Water-soluble contrast was gravity-infused through the patient's Self catheter. Multiple fluoroscopic images were obtained. Fluoroscopy exposure time was 0.3 minutes. The total number of margarette ges was 7. COMPARISON: None. FINDINGS: There is no extraluminal leakage of contrast. No ureteral reflux. IMPRESSION: 1. Normal cystogram. Reviewed, dictated and finalized at location A. IMPRESSION: 1. Normal cystogram.
== END 2024-05-24 11:11 | disposition home or self-care (01) ==
PROVIDERS: PCP Emergency Medicine; Visit Provider Urology
DX: C61 Malignant neoplasm of prostate (principal)
CPT/HCPCS: 51600; 74430; Q9967

== ENCOUNTER 2024-06-26 08:33 | Outpatient (CLI) | payer OTHER, SELFPAY ==
[2024-07-17 10:53] VITALS: BMI 23.7
--- NOTE | 2024-07-17 10:53 | WPDSLEEPSTUD ---
Sleep Study Date of Study: 06/26/24 Ordering Provider: Matheus Acevedo APRN Interpreting Physician: Lory Ly DO Sleep Study Type: Polysomnogram Height: 1.8 m Weight: 77.111 kg Body Mass Index: 23.7 Neck Circumference (inches): 16 Fenton: 6 Reason for Sleep Study snoring, difficulty staying asleep Sleep History The patient is a 63-year-old male that had a sleep study ordered for evaluation of sleep apnea. The patient admits to snoring loudly and difficulty staying asleep. He denies interruptions in breathing asleep. He denies choking or gasping at night. He does have difficulty breathing on his back. He denies morning headaches. He does have a dry or sore mouth / throat in the morning. He denies nocturnal heartburn. He urinates twice throughout the night. He denies having difficulty falling asleep. He does have difficulty returning to sleep if he wakes up throughout the night. He does use hypnotics or sedatives. He denies feeling anxious about sleep. He does feel tired or sleepy during the day. He does not feel tired in the morning. He denies having the urge to fall asleep during the day. He denies feeling drowsy while driving. He denies sleep paralysis, cataplexy and hypnagogic/ hypnopompic hallucinations. Denies clenching or grinding his teeth. He denies kicking or jerking his legs excessively. He denies having a restless feeling in his legs. He goes to bed at 10:00 p.m. number night. It takes him 15 minutes to fall asleep. He gets 6-1/2 hours of sleep on work days and 7 hours on his days. His sleep is a little more restorative on his days. He does take a nap in the afternoon that is less than 1 hour. He denies dream enactment behavior. He denies sleep walking. He consumes 3-4 cups of caffeinated beverage per day. He consumes 1 alcoholic beverage 1-2 nights per week. He denies tobacco use. He does exercise 5-7 nights per week. [facility] Past Medical History Medical History Adenocarcinoma of prostate Toenail fungus Foot pain Syncope Lumbar strain Sprain of left hand Fatigue Screening PSA (prostate specific antigen) Iron deficiency Vitamin D deficiency Orthostatic hypotension Nocturia Dizziness Bradycardia BPH associated with nocturia Screening PSA (prostate specific antigen) Iron deficiency anemia Surgical History Surgical History H/O prostatectomy Family History Family History Sibling Colon polyp Mother Family history of malignant melanoma, Onset Age: 76 Father Family history of lung cancer, Onset Age: 79 Social History Social History Smoking status: Never smoker Alcohol intake: never Drinks per week: 2 Substance use: former Substance use type: does not use Do You Feel Safe in your Home?: Yes Lack of Transportation: No Lack of Food: Never True Current Housing: Decline to Answer Concerned About Future Housing: Decline to Answer Difficulty Paying Gas/Electric Bills: Decline to Answer Difficulty Paying for Meds: Decline to Answer Currently Unemployed: Decline to Answer Education: Decline to Answer Difficulty w/ Childcare or Family Care: Decline to Answer Living arrangements: with family Spiritual care concerns: No Medications Home Medications Medication Instructions Recorded Confirmed Type cholecalciferol (vitamin D3) 25 25 mcg PO DAILY 05/07/20 06/04/24 History mcg (1,000 unit) tablet iron 18 mg tablet 18 mg PO DAILY 05/07/20 06/04/24 History fluticasone propionate 50 1 spray intranasal BID 01/24/24 06/04/24 History mcg/actuation nasal spray,suspension (Flonase Allergy Relief) levocetirizine 5 mg tablet (Xyzal) 5 mg PO DAILY 06/04/24 06/04/24 History Sleep Procedure A full night polysomnogram using the in3Dgallery multi-channel system recorded the standard physiologic parameters including EEG, EOG, submentalis EMG, anterior tibialis EMG, EKG, body position, nasal and oral airflow using nasal pressure sensor and thermistor. Respiratory parameters of chest and abdominal movements were recorded with Respiratory Inductance Plethysmography belts. Oxygen saturation was recorded by pulse oximetry. Video monitoring was also performed. Sleep stages, periodic limb movements, and EEG arousals were scored in 30 second epochs according to the criteria of the AASM Scoring Manual. The Apnea-Hypopnea Index was calculated using CMS guidelines for definition of hypopnea with 4% O2 desaturations while scoring respiratory events. Sleep Architecture The total recording time was 476.4 minutes. The total sleep time was 401.0 minutes. Sleep latency was 7.7 minutes. REM latency was 47.5 minutes. Sleep efficiency was 84.2%. The patient had 65 awakenings for an awakening index of 9.7. Wake after sleep onset time was 68.0 minutes. The patient spent 44.5 minutes, 11.1% of total sleep time in Stage N1. The patient spent 278.0 minutes, 69.3% in Stage N2. The patient spent 0.0 minutes, 0.0% in Stage N3. The patient spent 78.5 minutes, 19.6% in Stage REM sleep. Respiratory Analysis The patient had 3 hypopneas, 12 obstructive apneas and 1 central apnea for an overall Apnea Hypopnea Index of 2.4. The REM Apnea Hypopnea Index was 4.6. The NREM Apnea Hypopnea Index was 2.0. The patient had a Central Apnea Hypopnea Index of 0.1. There was no evidence of Minesh-Santos Respirations. Arousals There were 180 total arousals for an arousal index of 26.9. There were 81 spontaneous arousals for an index of 12.1. There were 11 arousals due to respiratory events for an index of 1.6. There were 44 arousals due to periodic limb movements for an index of 6.6. There were 24 arousals due to isolated limb movements for an index of 3.6. Periodic Limb Movements The patient had 58 isolated limb movements with an index of 8.7. The patient had 348 periodic limb movements with an index of 52.1, which is elevated (normal < 15). Patient had a total of 406 limb movements with a total limb movement index of 60.7. Oximetry Data The patient had an average oxygen saturation of 95.1% in sleep with a minimum oxygen saturation of 86.0% and a maximum oxygen saturation of 98.0%. The patient had 8 oxygen desaturations that were 4% or greater resulting in an Oxygen Desaturation Index of 1.3. The patient spent 5.7 minutes, 1.2% of total sleep time with an oxygen saturation below 88%. Snoring Profile Mild to moderate snoring was present intermittently throughout the study. Cardiac Profile The EKG showed normal sinus rhythm. No arrhythmias or premature beats were seen. The patient had an average pulse rate of 51.5 bpm with a minimum pulse of rate of 44.0 bpm and a maximum pulse rate of 71.0 bpm. EEG Profile No signs of seizure activity seen. Assessment and Plan Assessment and Plan (1) Snoring: Code(s): R06.83 - Snoring Status: Acute Assessment and Plan: The patient had an overall AHI of 2.4 with desaturation down to 86%. This is not consistent with sleep-disordered breathing. In general, snoring can be improved by smoking cessation, weight loss, alcohol avoidance several hours before bedtime, elevating the head of the bed by 6-9 inches and sleeping in the lateral position. For patients with chronic nasal congestion, we suggest a trial of intranasal glucocorticoids. For patients who continue to snore despite conservative therapy and relief of any nasal congestion, we suggest a trial of an external nasal dilator such as Breathe Right strips. (2) PLMD (periodic limb movement disorder): Code(s): G47.61 - Periodic limb movement disorder Status: Acute Assessment and Plan: The patient had a significant number of limb movements during the study with the majority being periodic in nature. Over 10% of the periodic limb movements caused arousals in the patient's sleep.The patient's sleep history does not suggest Restless Leg Syndrome. I recommend that the patient have a serum ferritin drawn for evaluation of iron deficiency anemia. If the patient has a serum ferritin less than 75 ng/mL, I recommend starting a daily iron supplement and a Vitamin C supplement for better absorption. If the serum ferritin is greater than 75 ng/mL, I recommend starting a dopamine agonist and titrating the dose until symptoms resolve. There are nonpharmacological methods to treat limb movements including daily exercise, stretching calf muscles before bed, avoiding excessive amounts of caffeine and alcohol, vitamin B supplementation, magnesium lotion massaged into legs before bed, and use of a weighted blanket. Data The data obtained during this sleep study is adequate for interpretation. Certification This sleep study has been reviewed by a board certified sleep medicine physician.
== END 2024-06-27 06:41 | disposition home or self-care (01) ==
LOC: ANHCSM 08:34
PROVIDERS: Visit Provider Nurse Practitioner Family
DX: R06.81 Apnea, not elsewhere classified (principal); R06.83 Snoring; R40.0 Somnolence; G47.61 Periodic limb movement disorder
CPT/HCPCS: 95810

== ENCOUNTER 2024-07-19 09:59 | Outpatient (CLI) | payer OTHER, SELFPAY | END 2024-07-19 10:00 | disposition home or self-care (01) | LOC: ANHLAB 10:00 | PROVIDERS: PCP Emergency Medicine; Visit Provider Physician Assistant | DX: D64.9 Anemia, unspecified (principal) | CPT/HCPCS: 36415; 82728 ==

== ENCOUNTER 2024-09-21 15:03 | Outpatient (CLI) | payer OTHER, SELFPAY ==
[2024-09-21 16:17] LABS: Ferritin 61.00 ng/mL (11.1-264)
== END 2024-09-21 15:04 | disposition home or self-care (01) ==
LOC: ANHLAB 15:04
PROVIDERS: PCP Emergency Medicine; Visit Provider Nurse Practitioner Family
DX: G47.61 Periodic limb movement disorder (principal)
CPT/HCPCS: 36415; 82728

== ENCOUNTER 2024-12-03 15:05 | Outpatient (CLI) | payer OTHER, SELFPAY ==
--- NOTE | ~2024-12-03 | XR_ITS ---
EXAMINATION: [id number], 12/03/2024 15:23 CDT HISTORY: M25.561 - Pain in right knee COMPARISON: No comparisons available. Findings: No acute fracture or malalignment. No significant degenerative changes. Soft tissues unremarkable. Impression: No acute fracture or malalignment. Reviewed, dictated and finalized at location P. Impression: No acute fracture or malalignment.
== END 2024-12-03 15:06 | disposition home or self-care (01) ==
PROVIDERS: PCP Emergency Medicine; Visit Provider Emergency Medicine
DX: M25.561 Pain in right knee (principal); M25.562 Pain in left knee
CPT/HCPCS: 73560